=== PATIENT | male | born 1990 | race African-American/Black ===

== ENCOUNTER 2017-07-10 15:46 | Emergency (ER) | payer MEDICARE, MEDICAID ==
[~2017-07-10] VITALS: Ht 195.6 cm; Wt 61.0 kg
[2017-07-10] MEDS ORDERED: DEXAMETHASONE 10 MG/ML VIAL IM ONE (17:15)
[2017-07-10] MEDS ORDERED: TRAMADOL 50MG TABLET PO ONE (17:15)
[2017-07-10 17:25] VITALS: BP 107/69
== END 2017-07-10 17:44 | disposition left against medical advice (07) ==
LOC: ER 16:31
DX: M54.5 Low back pain (principal); R05 Cough; F12.10 Cannabis abuse, uncomplicated; Z85.048 Personal history of other malignant neoplasm of rectum, rectosigmoid junction, and anus
CPT/HCPCS: 99283